=== PATIENT | male | born 1965 | race Hispanic/Latino ===

== ENCOUNTER 2017-06-29 06:19 | Observation (INO) | payer MEDICAID ==
[2017-06-29 06:48] LABS: BASO # 0.1 K/uL (0.0-0.2); BASO % 0.9 % (0.0-2.0); EOS # 0.1 K/uL (0.0-0.7); EOS % 1.6 % (0.0-4.0); LYMPH # 1.5 K/uL (1.0-4.3); LYMPH % 20.9 % (20.0-40.0); MEAN CELL VOLUME 98.2 fL (80.0-94.0); MEAN CORPUSCULAR HEMOGLOBIN 35.5 pg (27.0-31.0); MEAN CORPUSCULAR HGB CONC 36.2 g/dL (33.0-37.0); MEAN PLATELET VOLUME 8.7 fL (7.2-11.7); MONO % 13.4 % (0.0-10.0); NEUT # 4.6 K/uL (1.8-7.0); NEUT % 63.2 % (50.0-75.0); NRBC % 0.1 % (0.0-2.0); RBC 4.58 Mil/uL (4.40-5.90); WHITE BLOOD COUNT 7.2 K/uL (4.8-10.8)
[2017-06-29 06:50] LABS: PROTHROMBIN TIME 10.8 SECONDS (9.7-12.2)
[2017-06-29 06:55] LABS: ALB/GLOB RATIO 1.3 (1.0-2.1); ALBUMIN 4.4 g/dL (3.5-5.0); ALT/SGPT 80 U/L (21-72); AST/SGOT 78 U/L (17-59); BLOOD UREA NITROGEN 6 mg/dL (9-20); CALCIUM 9.1 mg/dl (8.6-10.4); GFR AFRICAN-AMERICAN > 60; GFR NON-AFRICAN AMERICAN > 60
[2017-06-29 07:00] LABS: HEMOGLOBIN 16.3 g/dL (12.0-18.0)
[2017-06-29] MEDS ORDERED: Sodium Chloride 0.9% 1,000 ML IV ONE (07:30)
[2017-06-29] MEDS ORDERED: Sodium Chloride 0.9% 1,000 ML ONE (07:45)
[2017-06-29] MEDS ORDERED: Potassium Chloride 20 mEq ER Tab PO STA (08:05)
[2017-06-29] MEDS ORDERED: Albuterol 0.083% Inhal Sol (2.5 mg/3 mL) UD IH STA (08:18)
[2017-06-29] MEDS ORDERED: Potassium Chloride 20 mEq ER Tab PO ONE (08:30)
[2017-06-29 08:38] LABS: LIPASE 213 U/L (23-300)
--- NOTE | 2017-06-29 08:38 | RAD ---
PROCEDURE: CHEST RADIOGRAPH, 1 VIEW HISTORY: cp COMPARISON: None available. FINDINGS: LUNGS: Clear. PLEURA: No pneumothorax or pleural fluid seen. CARDIOVASCULAR: Normal. OSSEOUS STRUCTURES: No significant abnormalities. VISUALIZED UPPER ABDOMEN: Normal. OTHER FINDINGS: None. IMPRESSION: No active disease.
--- NOTE | 2017-06-29 08:42 | C.PDOC ---
History Of Present Illness 51 year old male brought to ED via ambulance for evaluation of sub-sternal chest pain that started at 1:30am today. Pain is described as constant, and non- radiating. Pt notes pain lasted approximately 5 hours but resolved prior to arrival. Pt admits to non-productive cough, admits that he smokes cigars which aggravate his cough. Pt also admits to history of alcohol abuse, states he drinks daily, last drink was yesterday. Otherwise, denies shortness of breath, nausea, vomiting, abdominal pain, or fever. ASA 325mg PO given in the field. Time Seen by Provider: 06/29/17 07:05 Chief Complaint (Nursing): Chest Pain History Per: Patient History/Exam Limitations: no limitations Onset/Duration Of Symptoms: Hrs Current Symptoms Are (Timing): Better Severity: Moderate Quality: "Pain" Associated Symptoms: denies: Nausea, Dyspnea, Diaphoresis, Syncope Modifying Factors: None Exacerbating Factors: None Alleviating Factors: None Additional History Per: Patient Past Medical History Reviewed: Historical Data, Nursing Documentation, Vital Signs Vital Signs: Last Vital Signs Temp 98.2 F 06/29/17 15:15 Pulse 77 06/29/17 16:00 Resp 20 06/29/17 15:15 BP 108/67 06/29/17 15:15 Pulse Ox 97 06/29/17 15:15 - Medical History Other PMH: alcohol dependence Family History: States: No Known Family Hx - Social History Hx Alcohol Use: Yes Hx Substance Use: No - Immunization History Hx Tetanus Toxoid Vaccination: No Hx Influenza Vaccination: No Hx Pneumococcal Vaccination: No Review Of Systems Except As Marked, All Systems Reviewed And Found Negative. Constitutional: Negative for: Fever, Chills Cardiovascular: Positive for: Chest Pain. Negative for: Palpitations, Edema Respiratory: Positive for: Cough. Negative for: Shortness of Breath Gastrointestinal: Negative for: Nausea, Vomiting, Abdominal Pain Skin: Negative for: Rash Neurological: Negative for: Headache, Dizziness Physical Exam - Physical Exam Appears: Well, Non-toxic, No Acute Distress Skin: Warm, Dry, No Rash Head: Normacephalic Eye(s): bilateral: Normal Inspection Oral Mucosa: Moist Neck: Supple Cardiovascular: Rhythm Regular Respiratory: No Accessory Muscle Use, No Rales, No Rhonchi, Wheezing (mild expiratory wheezing bilaterally) Gastrointestinal/Abdominal: Normal Exam, Bowel Sounds, Soft, No Tenderness Extremity: Normal ROM, No Pedal Edema, No Calf Tenderness, Other (mild tremors in upper extremities) Neurological/Psych: Oriented x3 ED Course And Treatment - Laboratory Results Result Diagrams: 06/29/17 06:39 06/29/17 06:39 ECG: Interpreted By Me, Viewed By Me ECG Rhythm: Sinus Tachycardia ECG Interpretation: No Acute Changes Interpretation Of ECG: Normal axis, No acute ST/T wave changes. Rate From EC (bpm) O2 Sat by Pulse Oximetry: 96 (RA) Pulse Ox Interpretation: Normal - Other Rad CXR X-Ray: Viewed By Me, Read By Radiologist Interpretation: Accession No. : [id number]. Patient Name / ID : OCTAVIO MATTHEW / [id number]. Exam Date : 06/29/2017 07:21:31 ( Approved ). Study Comment : Sex / Age : M / 51Y. Creator : Virgil Cuellar MD. Dictator : Virgil Cuellar MD. Adjunct Spanish Instructor : Spanish Professor : Virgil Cuellar MD. Approver2 : Report Date : 06/29/2017 08:37:27. My Comment : . PROCEDURE: CHEST RADIOGRAPH, 1 VIEW. HISTORY: cp. COMPARISON: None available. FINDINGS: LUNGS: Clear. PLEURA: No pneumothorax or pleural fluid seen. CARDIOVASCULAR: Normal. OSSEOUS STRUCTURES: No significant abnormalities. VISUALIZED UPPER ABDOMEN: Normal. OTHER FINDINGS: None. IMPRESSION: No active disease. Progress Note: Blood work, EKG, CXR ordered and reviewed. Pt was given IV NS bolus, IV Zofran, IV ativan and PO Librium. Nebulizer treatment given for wheezing, PO Kdur given for hypokalemia. 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 Disposition - Disposition Disposition: HOSPITALIZED Disposition Time: 10:18 Condition: STABLE - Clinical Impression Clinical Impression: Alcohol dependence, Alcohol withdrawal, Hypokalemia, Chest pain - Scribe Statement The provider has reviewed the documentation as recorded by the Berenice Aldrich All medical record entries made by the Dajuanibtomeka were at my direction and personally dictated by me. I have reviewed the chart and agree that the record accurately reflects my personal performance of the history, physical exam, medical decision making, and the department course for this patient. I have also personally directed, reviewed, and agree with the discharge instructions and disposition. Decision To Admit - Pt Status Changed To: Hospital Disposition Of: Observation - . Bed Request Type: Telemetry Admitting Physician: Greta Stahl Patient Diagnosis: Chest pain, Alcohol dependence, Alcohol withdrawal, Hypokalemia
[2017-06-29] MEDS ORDERED: Multivitamin (MVI) 10 ML, Thiamine 100 MG, Folic Acid 1 MG in Sodium Chloride 0.9% 1,00... IV STA (11:22)
[2017-06-29 23:11] LABS: CK-MB 0.33 ng/mL (0.0-3.38)
[2017-06-30] MEDS: Potassium Ch 20mEq in D5-1/2NS 1,000 ML IV SCH ×2 (08:41→18:45)
[2017-06-30] MEDS: Enoxaparin 40 mg Syringe SC SCH (09:30)
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
[2017-06-30 11:51] LABS: ALB/GLOB RATIO 1.3 (1.0-2.1); ALBUMIN 3.9 g/dL (3.5-5.0); ALT/SGPT 124 U/L (21-72); AST/SGOT 159 U/L (17-59); BLOOD UREA NITROGEN 8 mg/dL (9-20); CALCIUM 9.2 mg/dl (8.6-10.4); GFR AFRICAN-AMERICAN > 60; GFR NON-AFRICAN AMERICAN > 60
--- NOTE | 2017-06-30 11:54 | CP.PCM.CON ---
History of Present Illness - History of Present Illness History of Present Illness: I was asked to see patient by Dr Stahl. The patient is a 51 year old alcoholic with chest pain. He is currently sedated and not able to cooperate with questioning. He was found to be hypokalemic. He is resting comfortably in bed. Review of Systems - Constitutional Constitutional: absent: As Per HPI, Anorexia, Chills, Daytime Sleepiness, Excessive Sweating, Fatigue, Fever, Frequent Falls, Headache, Increased Appetite , Lethargy, Malaise, Night Sweats, Snoring, Sleep Apnea, Weight Gain, Weight Loss, Weakness, Other - EENT Eyes: absent: As Per HPI, Blind Spots, Blurred Vision, Change in Vision, Decreased Night Vision, Diplopia, Discharge, Dry Eye, Exophthalmos, Floaters, Irritation, Itchy Eyes, Loss of Peripheral Vision, Pain, Photophobia, Requires Corrective Lenses, Sees Flashes, Spots in Vision, Tunnel Vision, Other Visual Disturbances, Loss of Vision, Other Nose/Mouth/Throat: absent: As Per HPI, Epistaxis, Nasal Congestion, Nasal Discharge, Nasal Obstruction, Nasal Trauma, Nose Pain, Post Nasal Drip, Sinus Pain, Sinus Pressure, Bleeding Gums, Change in Voice, Dental Pain, Dry Mouth, Dysphagia, Halitosis, Hoarsness, Lip Swelling, Mouth Lesions, Mouth Pain, Odynophagia, Sore Throat, Throat Swelling, Tongue Swelling, Facial Pain, Neck Pain, Neck Mass, Other - Cardiovascular Cardiovascular: Chest Pain - Respiratory Respiratory: absent: As Per HPI, Cough, Dyspnea, Hemoptysis, Dyspnea on Exertion , Wheezing, Snoring, Stridor, Pain on Inspiration, Chest Congestion, Excessive Mucous Production, Change in Mucous Color, Pain with Coughing, Other - Gastrointestinal Gastrointestinal: absent: As Per HPI, Abdominal Pain, Belching, Bloating, Change in Bowel Habits, Change in Stool Character, Coffee Ground Emesis, Constipation, Cramping, Diarrhea, Dyspepsia, Dysphagia, Early Satiety, Excessive Flatus, Fecal Incontinence, Heartburn, Hematemesis, Hematochezia, Loose Stools, Melena, Nausea, Odynophagia, Temesmus, Vomiting, Other - Genitourinary Genitourinary: absent: As Per HPI, Change in Urinary Stream, Difficulty Urinating, Dysuria, Flank Pain, Hematuria, Pyuria, Nocturia, Urinary Incontinence, Urinary Frequency, Urinary Hesitance, Urinary Urgency, Voiding Freq/Small Amts, Freq UTI, Hx Renal/Bladder Calculi, Hx /Renal Surgery, Bladder Distension, Other - Musculoskeletal Musculoskeletal: absent: As Per HPI, Abnormal Gait, Arthralgias, Atrophy, Back Pain, Deformity, Joint Swelling, Limited Range of Motion, Loss of Height, Muscle Cramps, Muscle Weakness, Myalgias, Neck Pain, Numbness, Radiating Pain into Limb, Stiffness, Tingling, Other - Integumentary Integumentary: absent: As Per HPI, Acne, Alopecia, Bleeding Lesions, Change in Hair, Change in Nails, Change in Pigmentation, Changing Lesions, Dry Skin, Erythema, Furuncle, Hirsutism, Lesions, New Lesions, Non-Healing Lesions, Photosensitivity, Pruritus, Rash, Skin Pain, Skin Ulcer, Sores, Striae, Swelling , Unusual Bruising, Wounds, Jaundice, Other - Neurological Neurological: absent: As Per HPI, Abnormal Gait, Abnormal Hearing, Abnormal Movements, Abnormal Speech, Behavioral Changes, Burning Sensations, Confusion, Convulsions, Disequilibrium, Dizziness, Numbness, Focal Weakness, Frequent Falls , Headaches, Lack of Coordination, Loss of Vision, Memory Loss, Paresthesias, Radicular Pain, Restless Legs, Sensory Deficit, Syncope, Tingling, Tremor, Vertigo, Weakness, Other Visual Disturbances, Other - Psychiatric Psychiatric: absent: As Per HPI, Abnormal Sleep Pattern, Anhedonia, Anxiety, Auditory Hallucinations, Behavioral Changes, Change in Appetite, Change in Libido, Confusion, Depression, Difficulty Concentrating, Hallucinations, Homicidal Ideation, Hopelessness, Irritability, Memory Loss, Mood Swings, Panic Attacks, Paranoia, Suicidal Ideation, Visual Hallucinations, Tactile Hallucinations, Other - Endocrine Endocrine: absent: As Per HPI, Change in Body Appearance, Change in Libido, Cold Intolorance, Deepening of Voice, Excessive Sweating, Fatigue, Flushing, Heat Intolorance, Increase in Ring/Shoe/Hat Size, Palpitations, Polydipsia, Polyphagia, Polyuria, Other - Hematologic/Lymphatic Hematologic: absent: As Per HPI, Easy Bleeding, Easy Bruising, Lymphadenopathy, Other Past Patient History - Past Social History Smoking Status: Heavy Smoker > 10 Cigarettes Daily - PSYCHIATRIC Hx Substance Use: No - SURGICAL HISTORY Other/Comment: abdominal sx - congenital Meds Allergies/Adverse Reactions: Allergies Allergy/AdvReac Type Severity Reaction Status Date / Time No Known Allergies Allergy Unverified 06/29/17 06:31 - Medications Medications: Current Medications Chlordiazepoxide (Librium) 25 mg PO Q4H PRN PRN Reason: Alcohol Withdrawal Chlordiazepoxide (Librium) 25 mg PO Q6 [facility] PRN Reason: Taper Stop: 07/04/17 11:59 Clonidine HCl (Catapres) 0.1 mg PO Q4H PRN PRN Reason: Symptoms of alcohol withdrawl Enoxaparin Sodium (Lovenox) 40 mg SC DAILY [facility] Last Admin: 06/30/17 09:30 Dose: 40 mg Escitalopram Oxalate (Lexapro) 5 mg PO DAILY [facility] Last Admin: 06/30/17 10:34 Dose: 5 mg Gabapentin (Neurontin) 300 mg PO TID [facility] Last Admin: 06/30/17 10:28 Dose: 300 mg Potassium Chloride/Dextrose/Sod Cl (Potassium Chl 20 Meq In D5-1/2ns) 1,000 mls @ 100 mls/hr IV .Q10H [facility] Last Admin: 06/30/17 08:41 Dose: 100 mls/hr Nicotine (Nicoderm Cq) 1 patch TD DAILY [facility] Last Admin: 06/30/17 09:30 Dose: 1 patch Thiamine HCl (Vitamin B1 Tab) 100 mg PO DAILY [facility] Last Admin: 06/30/17 09:30 Dose: 100 mg Trazodone HCl (Desyrel) 100 mg PO [facility] Physical Exam - Constitutional Appears: Non-toxic - Head Exam Head Exam: NORMAL INSPECTION - Eye Exam Eye Exam: Normal appearance - ENT Exam ENT Exam: Mucous Membranes Moist - Neck Exam Neck exam: Positive for: Full Rom - Respiratory Exam Respiratory Exam: NORMAL BREATHING PATTERN - Cardiovascular Exam Cardiovascular Exam: REGULAR RHYTHM - GI/Abdominal Exam GI & Abdominal Exam: Normal Bowel Sounds - Rectal Exam Rectal Exam: Deferred - Extremities Exam Extremities exam: Positive for: pedal edema - Back Exam Back exam: NORMAL INSPECTION - Neurological Exam Neurological exam: Alert, Oriented x3 - Psychiatric Exam Psychiatric exam: Normal Affect - Skin Skin Exam: Normal Color Results - Vital Signs Recent Vital Signs: Last Vital Signs Temp 98.8 F 06/30/17 08:00 Pulse 79 06/30/17 08:00 Resp 18 06/30/17 08:00 BP 153/96 H 06/30/17 08:00 Pulse Ox 97 06/30/17 08:00 - Labs Result Diagrams: 06/29/17 06:39 06/29/17 06:39 Labs: Laboratory Results - last 24 hr 06/29/17 06/30/17 22:38 11:25 Total Creatine Kinase 87 76 CK-MB (Mass) 0.33 Troponin I < 0.0120 - EKG Data EKG Interpreted by: Myself EKG shows normal: Sinus rhythm Assessment & Plan (1) Alcohol withdrawal Assessment and Plan: continue libirum Status: Acute (2) Chest pain Assessment and Plan: no current chest pain. cardiac enzymes negative. check echocardiogram If enzymes negative continue medical therapy Status: Acute (3) Hypokalemia Assessment and Plan: replete potassium Status: Acute
[2017-06-30 12:09] LABS: CK-MB 0.32 ng/mL (0.0-3.38); FREE T4 0.87 ng/dL (0.78-2.19)
[2017-07-01 07:49] VITALS: BP 128/81; RESP 18; TEMP 97.3; O2SAT 97
[2017-07-01] MEDS: Potassium Ch 20mEq in D5-1/2NS 1,000 ML IV SCH (08:03)
[2017-07-01] MEDS: Enoxaparin 40 mg Syringe SC SCH (09:35)
[2017-07-01 10:18] VITALS: PULSE 69
--- NOTE | 2017-07-01 11:18 | CP.PCM.PN ---
Subjective - Date & Time of Evaluation Date of Evaluation: 07/01/17 Time of Evaluation: 09:00 - Subjective Subjective: PGY-[address] Stahl Patient seen and examined at bedside. No acute events reported overnight. Patient reports his chest pain have resolved. Patient is resting in bed comfortable eating breakfast. Patient denies fever, chills, shortness of breath , chest pain, nausea, vomiting, or urinary symptoms. Objective - Vital Signs/Intake and Output Vital Signs (last 24 hours): Temp Pulse Resp BP Pulse Ox 97.3 F L 69 18 128/81 97 07/01/17 07:20 07/01/17 08:00 07/01/17 07:20 07/01/17 07:20 07/01/17 07:20 Intake and Output: 07/01/17 07/01/17 06:59 18:59 Intake Total 1250 800 Output Total 1350 Balance -100 800 - Medications Medications: Current Medications Chlordiazepoxide (Librium) 25 mg PO Q4H PRN PRN Reason: Alcohol Withdrawal Chlordiazepoxide (Librium) 25 mg PO Q6H [facility] PRN Reason: Taper Stop: 07/04/17 11:59 Last Admin: 07/01/17 06:04 Dose: 25 mg Clonidine HCl (Catapres) 0.1 mg PO Q4H PRN PRN Reason: Symptoms of alcohol withdrawl Enoxaparin Sodium (Lovenox) 40 mg SC DAILY [facility] Last Admin: 07/01/17 09:35 Dose: 40 mg Escitalopram Oxalate (Lexapro) 10 mg PO DAILY [facility] Last Admin: 07/01/17 09:35 Dose: 10 mg Gabapentin (Neurontin) 300 mg PO TID [facility] Last Admin: 07/01/17 09:35 Dose: 300 mg Potassium Chloride/Dextrose/Sod Cl (Potassium Chl 20 Meq In D5-1/2ns) 1,000 mls @ 100 mls/hr IV .Q10H [facility] Last Admin: 07/01/17 08:03 Dose: Not Given Nicotine (Nicoderm Cq) 1 patch TD DAILY [facility] Last Admin: 07/01/17 09:35 Dose: 1 patch Thiamine HCl (Vitamin B1 Tab) 100 mg PO DAILY [facility] Last Admin: 07/01/17 09:35 Dose: 100 mg Trazodone HCl (Desyrel) 100 mg PO HS [facility] Last Admin: 06/30/17 22:09 Dose: 100 mg - Labs Labs: 06/29/17 06:39 06/30/17 11:25 PT 10.8 SECONDS (9.7-12.2) 06/29/17 06:39 INR 1.0 06/29/17 06:39 APTT 31 SECONDS (21-34) 06/29/17 06:39 - Constitutional Appears: Non-toxic, No Acute Distress - Head Exam Head Exam: ATRAUMATIC - Eye Exam Eye Exam: EOMI, Normal appearance - ENT Exam ENT Exam: Mucous Membranes Moist - Neck Exam Neck Exam: Normal Inspection - Respiratory Exam Respiratory Exam: Clear to Ausculation Bilateral, NORMAL BREATHING PATTERN. absent: Respiratory Distress - Cardiovascular Exam Cardiovascular Exam: REGULAR RHYTHM, +S1, +S2. absent: Murmur - GI/Abdominal Exam GI & Abdominal Exam: Soft, Normal Bowel Sounds. absent: Tenderness - Neurological Exam Neurological Exam: Alert, Awake, Oriented x3 - Skin Skin Exam: Dry, Warm Assessment and Plan - Assessment and Plan (Free Text) Assessment: Chest pain r/o ACS -Symptom resolved -troponin negative x3 -EKG NSR without ST changes -Cardiology recommends medical management Depression -Psychiatry consult, Dr. Watson help appreciated -Started Lexapro 10mg daily -Cleared to be discharge per psych Polysubstance abuse -Alcohol cessation was advised -Smoking cessation was advised Patient is medically stable to be discharged per Dr. Stahl All management per Dr. Stahl
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
--- NOTE | 2017-07-01 11:52 | HP ---
HISTORY OF PRESENT ILLNESS: A 51-year-old male with muscular chest pain and alcohol abuse. The patient came to hospital, advised admission. PHYSICAL EXAMINATION: GENERAL: The patient is awake, alert, and oriented. VITAL SIGNS: Temperature 98, pulse 90. HEENT: Within normal limits. NECK: Supple. CHEST: Symmetrical. HEART: Regular. ABDOMEN: Soft. EXTREMITIES: No edema. IMPRESSION: Chest pain, alcoholism. RECOMMENDATIONS: The patient is to get bed rest, supportive care. Greta Stahl MD
== END 2017-07-01 14:15 | disposition home or self-care (01) ==
LOC: C.ER 06:19 → C.9E 10:18 → C.6T 11:25
PROVIDERS: ADMIT Internal Medicine Pulmonary Disease; ATTEND Internal Medicine Pulmonary Disease
DX: R07.89 Other chest pain (principal); E87.6 Hypokalemia; F10.239 Alcohol dependence with withdrawal, unspecified; F17.290 Nicotine dependence, other tobacco product, uncomplicated; F32.9 Major depressive disorder, single episode, unspecified; F41.9 Anxiety disorder, unspecified; Z59.0 Homelessness; F12.90 Cannabis use, unspecified, uncomplicated
CPT/HCPCS: 36415; 71045; 80053; 80320; 82306; 83690; 83735; 84439; 84443; 84484; 85025; 85610; 85730; 96360; 96374; 99285; G0378; J1650; J2060; J2405; J3411; J7040